=== PATIENT | male | born 1975 | race Caucasian/White ===

== ENCOUNTER 2025-05-19 01:47 | Inpatient (IN) | payer MEDICARE, OTHER, SELFPAY ==
[2025-05-19] VITALS (10 sets, daily range): BP systolic 73–137; BP diastolic 37–73; PULSE 60–79; RESP 14–19; TEMP 36.2–36.7; O2SAT 94–99; BMI 38.2
--- NOTE | ~2025-05-19 | XR_ITS ---
EXAMINATION: XR chest 2V 05/19/2025 02:25 INDICATION: Chest pain and shortness of breath PROCEDURE: 2 view chest COMPARISON: No prior studies for comparison. FINDINGS: The lungs are clear. The cardiomediastinal silhouette is within normal limits. There are no pleural effusions. There is no pneumothorax suspected. IMPRESSION: 1: NO ACUTE CARDIOPULMONARY DISEASE. Reviewed, dictated and finalized at location A.
--- NOTE | ~2025-05-19 | NM_ITS ---
EXAMINATION: NM monserrat stress w perfusion DATE: 05/19/2025 13:19 INDICATION: Chest pain TECHNIQUE: Rest images were obtained following intravenous administration of 9.44 mCi Tc99m tetrofosm in (Myoview). The patient was infused intravenously with Lexiscan (Regadenoson). Then, 31 mCi Tc99m t etrofosmin (Myoview) was administered intravenously, and stress images were obtained. Data was recons tructed into short axis and horizontal and vertical long axis SPECT images. Gated SPECT images were a lso obtained. COMPARISON: None. FINDINGS: There is a small mild perfusion defect along the mid inferior wall on the rest and stress i mages most prominent on the rest and gated post stress imaging is equivocal for small mild infarct ve rsus more likely diaphragmatic attenuation artifact. There is an additional small mild reversible per fusion defect at the mid inferolateral segment consistent with ischemia. There is normal left ventri cular chamber size, wall motion and ejection fraction. Left ventricular ejection fraction measures > 70%. IMPRESSION: 1. Small region suspicious for mild reversible ischemia at the mid inferolateral segment. 2. Small amount fixed perfusion defect along the mid inferior wall is equivocal for infarct versus di aphragmatic attenuation artifact.. 3. Left ventricular ejection fraction measuring >70%. Reviewed, dictated and finalized at location A. IMPRESSION: 1. Small region suspicious for mild reversible ischemia at the mid inferolatera l segment. 2. Small amount fixed perfusion defect along the mid inferior wall is equivocal for infarct versus diaphragmatic attenuation artifact.. 3. Left ventricular ejection fraction measuring >70%.
--- NOTE | ~2025-05-19 | CT_ITS ---
EXAMINATION: CTA chest PE protocol DATE: 05/19/2025 6:16 CDT INDICATION: Chest pain. Hypertension. TECHNIQUE: Computed tomographic angiography (CTA) of the chest was performed with 100 mL Omnipaque-35 0 intravenous contrast. The dose-length product was 1397.52 mGy-cm. Maximum intensity projection 3D-r econstructions of the aorta and other arteries were constructed by the technologist on a separate wor kstation. COMPARISON: None. FINDINGS: Study is technically adequate without evidence for pulmonary embolism. Heart size normal. N o significant pleural or pericardial effusion. No suspicious pulmonary nodules or masses. No focal co nsolidation to suggest pneumonia. No endobronchial lesions. No pneumothorax. Hepatomegaly. Nodularity of the liver surface suspicious for cirrhosis. Moderate thoracic spondylosis. No focal lytic or arias tic lesions. IMPRESSION: 1. No acute cardiopulmonary disease. No evidence for pulmonary embolism. Reviewed, dictated and finalized at location A.
--- NOTE | 2025-05-19 01:48 | ECG_ITS ---
Test Date: 2025-05-19 02:02:57 Measurements Intervals [place] Rate: 71 P: -43 LA: 130 QRS: 28 QRSD: 90 T: 6 QT: 370 QTc: 403 Interpretive Statements ECTOPIC ATRIAL RHYTHM NONSPECIFIC T-WAVE ABNORMALITY ABNORMAL ECG No previous ECG available for comparison Electronically Signed On 05-19-2025 10:05:42 CDT by Russell Ratliff M.D.
[2025-05-19 02:21] LABS: Hematocrit 41.6 % (42.0-52.0); Hemoglobin 14.5 g/dL (14.0-18.0); Immature Granulocyte Percent A 0.2 % (0-0.5); Lymphocytes Absolute Auto 3.40 K/mm3 (0.9-3.2); Mean Corpuscular HGB Conc 34.9 g/dl (32-36); Mean Corpuscular Hemoglobin 29.5 pg (26-34); Mean Corpuscular Volume 84.6 fl (80-100); Nucleated Red Blood Cells Absolute Auto 0.000 K/mm3 (0.0-0.012); Nucleated Red Blood Cells Perc 0.0 % (0.0-0.2); Platelet Count Result 192 k/mm3 (150-375); Red Blood Count 4.92 M/mm3 (4.6-6.20); White Blood Count 8.9 K/mm3 (4.5-10.0)
[2025-05-19 02:28] LABS: INR 1.0; Prothrombin Time 13.5 Seconds (11.1-14.7)
[2025-05-19 02:30] LABS: Partial Thromboplastin Time 22.2 Seconds (22.3-36.8)
[2025-05-19 02:47] LABS: Alanine Aminotransferase 44 U/L (6-50); Albumin Level 4.4 g/dL (3.5-5.1); Alkaline Phosphatase 52 U/L (38-126); Anion Gap 12 mmol/L (4-12); Aspartate Amino Transferase 31 U/L (17-59); Bilirubin,Total 0.6 mg/dL (0.2-1.3); Blood Urea Nitrogen 19 mg/dL (9-20); Calcium 10.1 mg/dL (8.4-10.2); Carbon Dioxide 20 mmol/L (22-30); Chloride 101 mmol/L (98-107); Estimated CRCL calculation 63 ml/min; Estimated Glomerular Filt Rate 40; Glucose 206 mg/dL (65-110); Lipase 239 U/L (23-300); Potassium 4.0 mmol/L (3.4-5.0); Sodium 133 mmol/L (137-145); Total Protein 7.9 g/dL (6.3-8.2)
[2025-05-19] MEDS: SODIUM CHLORIDE 0.9% IV 1,000 ML 999 ML IV CONT ×2 (02:52→06:18)
[2025-05-19] MEDS: LACTATED RINGERS 1,000 ML 999 ML IV CONT (02:52)
--- OUTSIDE RECORDS SUMMARY | 2025-05-19 02:57 | XMS_ITS | Clinical Summary ---
Author Organization [facility] Address [address] [place] [address] Care Team Providers Care Advertising Operations Coordinator Name Role Phone Guanako Mccallum DDRito Primary Care Provider [phone] Allergies No known active allergies Medications lisinopril 10 MG tablet Take 5 mg by mouth daily. Active traMADol 50 MG tablet Take 10 mg by mouth 4 (four) times a day. Active atenolol 25 MG tablet Take 12.5 mg by mouth daily. Active hydrOXYzine 25 MG capsule Take 25 mg by mouth 2 (two) times a day. Active metFORMIN 500 MG tablet Take 500 mg by mouth 2 (two) times daily with meals. Active hydrocodone-radha taminophen 7.5-325 MG tablet Take 1 tablet by mouth 4 (four) times a day. Active cyclobenzaprine 10 MG tablet Take 10 mg by mouth 3 (three) times daily as needed. Active divalproex ER 500 MG 24 hr tablet Take 500 mg by mouth daily. Take 1 tablet every morning and take 2 tablets at bedtime Active fenofibrate 145 MG tablet Take 145 mg by mouth daily. Active rosuvastatin 40 MG tablet Take 40 mg by mouth nightly at bedtime. Active levothyroxine 25 MCG tablet Take 25 mcg by mouth every morning. Active glipiZIDE 5 MG tablet Take 5 mg by mouth every morning before breakfast. Take 2 tablets every morning with meal and take 1 tablet every evening with meal Active potassium citrate CR 10 MEQ (1080 MG) tablet Take 10 mEq by mouth 2 (two) times a day. Active ranitidine 150 MG tablet Take 150 mg by mouth 2 (two) times daily. Active sertraline 100 MG tablet Take 100 mg by mouth daily. Take 2 tablets by mouth every day and take one-half tablet at bedtime Active omeprazole 20 MG capsule Take 20 mg by mouth daily. Active QUEtiapine 100 MG tablet Take 200 mg by mouth nightly at bedtime. Take 1 tablet by mouth every morning and 1 1/2 tablet at bedtime Active gabapentin 300 MG capsule Take 600 mg by mouth 3 (three) times daily. Active aspirin EC 81 MG tablet Take 81 mg by mouth daily. Active Multiple Vitamins-Minera ls (MULTIVITAMIN ADULT) Tab Active biotin 300 MCG Tab Take 1 tablet by mouth daily. Active Multiple Vitamin (TAB-A-JASON/BET A CAROTENE) Tab Acti ve Active Problems Problem Noted Date Diagnosed Date History of esophagogastroduodenoscopy (EGD) 07/30 Esophageal dysmotility 08/26/2019 Schizoaffective disorder, bipolar type ([facility]) 07/03/2019 Bilateral carpal tunnel syndrome 07/03/2019 Hypokalemia 07/03/2019 Hypothyroidism 07/03/2019 Hypertensive disorder 07/03/2019 Type 2 diabetes mellitus ([facility]) 07/03 Gastroesophageal reflux disease 07/03/2019 Chronic kidney disease 07/03/2019 Obstructive sleep apnea 07/03/2019 Obesity 07/03/2019 Smoker 07/03/2019 Family History Medical History Relation Comments Diabetes Father Hyperlipidemia Father Hypertension Father atrialfibulation Father Diabetes Mother Hyperlipidemia Mother Hypertension Mother Relation Status Comments Father Mother Social History Tobacco Use Types Packs/Day Years Used Date Smoking Tobacco: Every Day Smokeless Tobacco: Current Chew Alcohol Use Standard Drinks/Week Comments No 0 (1 standard drink = 0.6 oz pur e alcohol) AUDIT-C Answer Date Recorded Frequency of Alcohol Consumption Never 07/07/2019 Average Number of Drinks Not on file 019 Frequency of Binge Drinking Not on file 06/28 Sex and Gender Information Value Date Recorded Sex Assigned at Male 07/07/2019 2:04 PM CDT Legal Sex Male 3:24 PM CDT Gender Identity Male 07/07/2019 2:04 PM CDT Sexual Orientation Not on file Last Filed Vital Signs Vital Sign Reading Time Taken Comments Blood Pressure 135/85 08/27/2019 2:25 PM CDT Pulse 72 08/27/2019 2:25 PM CDT Temperature 36.3 C (97.4 F) 07/13/2019 12:45 PM CDT Respiratory Rate 20 07/13/2019 12:45 PM CDT Oxygen Saturation 98% 07/13/2019 12:33 PM CDT Inhaled Oxygen Concentration - - Weight 151 kg (332 lb 14.3 oz) 08/27/2019 2:25 P M CDT Height 188 cm (6' 2) 08/27/2019 2:25 PM CDT Body Mass Index 42.74 08/27/2019 2:25 PM CDT Plan of Treatment Health Maintenance Due Date Last Done Comments Colorectal Cancer Screening Colonoscopy (10 Years) 1975 Annual Physical 1979 Hepatitis C 1994 DTaP, Tdap and Td Vaccines ( 1 - Tdap) 1995 Hepatitis B Vaccines (1 of 3 - 19+ 3-dose series) 1995 Pneumococcal Vaccine: Pediat rics (0 to 5 Years) and At-Risk Patients (6 to 49 Years) (1 of 2 - PCV) 1995 COVID-19 Vaccine (2023-2 5 season) 2024 Meningococcal B Vaccine Aged Out No l onger eligible based on patient's age to complete this topic Meningococcal Vaccine Aged Out No chad mauricio eligible based on patient's age to complete this topic RSV Immunizations Under 20 Months Aged Out No longer eligible based on patient's age to complete this topic Care Teams Advertising Operations Coordinator Relationship Specialty Start Date End Date Guanako Mccallum DDS [address] [facility] [id number] [place] [address] PCP - General PREVENTIVE MEDICINE 06/30/19
[2025-05-19 03:01] LABS: Troponin I 0.041 ng/mL (0.000-0.034)
--- NOTE | 2025-05-19 03:06 | ECG_ITS ---
Test Date: 2025-05-19 03:09:06 Measurements Intervals [place] Rate: 62 P: 99 IN: 150 QRS: 36 QRSD: 88 T: 61 QT: 398 QTc: 407 Interpretive Statements SINUS RHYTHM NONSPECIFIC T-WAVE ABNORMALITY ABNORMAL ECG Compared to ECG 05/19/2025 02:02:57 No significant changes Electronically Signed On 05-19-2025 10:06:07 CDT by Russell Ratliff M.D.
--- NOTE | 2025-05-19 03:25 | ED_ITS ---
HPI - Chest Pain General Chief Complaint: Chest Pain Stated Complaint: chest pain, sob, palpatations Time Seen by Provider: 05/19/25 02:24 History of Present Illness HPI narrative: 49-year-old male with a history of hypertension, hyperlipidemia. Patient presents to the emergency department with concerns of chest pain, shortness a breath and palpitations sensations. States that feels like something is squeezing his heart. Endorses some lightheadedness and dizziness but no passing out or syncope. He received nitroglycerin in route by EMS even though he had low blood pressures. On arrival he was 73/37. This improved without any interventions to 90/56 by bring him back into the room. No history of DVT or PE. No recent surgeries in the last 6 months. No calf cramping or asymmetry in the legs. Endorses constant chest pain that began sometime last night and progressively worsened throughout the evening. Not doing any exertional in the symptoms onset. Endorses shortness of breath but no fever, chills, cough, abdominal pain, back pain, nausea, vomiting, weakness or paresthesias. Does not see a emergency planning and response manager. Takes amlodipine and atenolol for blood pressure control. Related Data Allergies Allergy/AdvReac Type Severity Reaction Status Date / Time No Known Allergies Allergy Verified 05/19/25 01:48 Review of Systems 2 Review of Systems: As reviewed above in HPI Exam 2 Narrative: GENERAL: [Well-appearing, well-nourished, and in no acute distress.] HEAD: [Normocephalic, atraumatic.] EYES: [PERRLA and EOMI.] ENT: Nares clear, no rhinorrhea or epistaxis. Mucous membranes moist. NECK: Supple. CHEST: [Clear to auscultation. No respiratory distress.] HEART: [Regular rate and rhythm]. No murmur heard. [Normal peripheral pulses.] ABDOMEN: [Soft, nondistended], [nontender], [No rigidity or guarding] EXTREMITIES: Normal range of motion. [No edema.] SKIN: Warm, dry, no rash. NEURO: [No focal deficits]. Alert and oriented [x3.] PSYCH: [Normal mood and affect.] Course Vital Signs Vital signs: Vital Signs Temperature 36.2 C L 05/19/25 01:49 Pulse Rate 70 07/23/25 01:49 Respiratory Rate 19 05/19/25 01:49 Blood Pressure 73/37 L 05/19/25 01:49 Pulse Oximetry 97 05/19/25 01:49 Oxygen Delivery Room Air 05/19/25 01:49 Temperature 36.2 C L 05/19/25 01:49 Pulse Rate 62 05/19/25 03:15 Respiratory Rate 14 05/19/25 03:15 Blood Pressure 97/63 L 05/19/25 03:15 Pulse Oximetry 94 05/19/25 03:15 Oxygen Delivery Room Air 05/19/25 01:49 MDM - Chest Pain MDM Narrative Medical decision making narrative: 49-year-old male with a history of hypertension, hyperlipidemia. Patient presents to the emergency department with concerns of chest pain, shortness a breath and palpitations sensations. States that feels like something is squeezing his heart. Endorses some lightheadedness and dizziness but no passing out or syncope. He received nitroglycerin in route by EMS even though he had low blood pressures. On arrival he was 73/37. This improved without any interventions to 90/56 by bring him back into the room. No history of DVT or PE. No recent surgeries in the last 6 months. No calf cramping or asymmetry in the legs. Endorses constant chest pain that began sometime last night and progressively worsened throughout the evening. Not doing any exertional in the symptoms onset. Endorses shortness of breath but no fever, chills, cough, abdominal pain, back pain, nausea, vomiting, weakness or paresthesias. Does not see a emergency planning and response manager. Takes amlodipine and atenolol for blood pressure control. Patient is not any acute distress but did have low blood pressures in triage after receiving nitroglycerin in route by EMS. This improved to 90s over 50s in the room without any further interventions. Fluids were started. He is endorsing chest pain and left-sided chest and pointing towards where his heart is. Pain does not radiate anywhere. Strong symmetric pulses throughout, warm extremities, afebrile with good saturation 97% on room air. No tachycardia. Placed on bolt man and pulse oximetry. Workup was ordered including serial troponins, EKG, chest x-ray, CBC, CMP lipase. Patient given Dilaudid for analgesia and re-evaluated. Initial troponin is elevated. CT angiography of the chest ordered this time for further evaluation. EKG shows no ST segment elevations on initial and delta EKG obtained after initial troponin. CT angiography shows no pulmonary embolism, no aneurysms or dissections. Clear lungs. Heart size is normal. No lymph node enlargement. Chest x-ray shows no acute findings. Patient is started on heparin at this time, bolus dose provided. Delta troponin pending. Blood pressure improved to 105/68 with fluid resuscitation. He did require additional pain control medications. Admitted to the hospitalist after discussed the patient's presentation and concern for elevated troponins in the settings of potential angina or ACS. Patient accepted to a IMU bed. Consult Cardiology placed. Patient re-evaluated doing well after pain medications and heparin. Medical Records Data Attestation: I reviewed the patient's medical records. Lab Data Attestation: I reviewed the patient's lab results. 05/19/25 05:44 05/19/25 02:09 Labs: Lab Results 05/19/25 05/19/25 05/19/25 Range/Units 02:09 02:33 05:44 WBC 8.9 7.9 (4.5-10.0) K/mm3 RBC 4.92 4.32 L (4.6-6.20) M/mm3 Hgb 14.5 12.8 L (14.0-18.0) g/dL Hct 41.6 L 37.1 L (42.0-52.0) % MCV 84.6 85.9 (80-100) fl MCH 29.5 29.6 (26-34) pg MCHC 34.9 34.5 (32-36) g/dl RDW 12.9 13.1 (11.5-14.5) % Plt Count 192 160 (150-375) k/mm3 MPV 10.9 H 10.9 H (7.4-10.4) fl Immature Gran % (Auto) 0.2 0.4 (0-0.5) % Neut % (Auto) 49.9 46.4 (45.5-73.1) % Lymph % (Auto) 38.4 42.7 (18.3-44.2) % Bee % (Auto) 10.2 H 9.2 H (2.6-8.5) % Eos % (Auto) 1.0 0.8 (0-4.4) % Baso % (Auto) 0.3 0.5 (0.2-1.2) % Lymph # (Auto) 3.40 H 3.39 H (0.9-3.2) K/mm3 Bee # (Auto) 0.9 H 0.7 H (0.1-0.6) K/mm3 Eos # (Auto) 0.1 0.1 (0-0.3) K/mm3 Baso # (Auto) 0.0 0.0 (0.0-0.1) K/mm3 Abs Immat Gran (auto) 0.02 0.03 (0.00-0.031) K/mm3 Absolute Neuts (auto) 4.4 3.7 (1.3-6.7) K/mm3 Absolute Nucleated RBC 0.000 0.000 (0.0-0.012) K/mm3 Nucleated RBC % 0.0 0.0 (0.0-0.2) % PT 13.5 14.0 (11.1-14.7) Seconds INR 1.0 1.1 APTT 22.2 L 23.3 (22.3-36.8) Seconds Sodium 133 L (137-145) mmol/L Potassium 4.0 (3.4-5.0) mmol/L Chloride 101 (98-107) mmol/L Carbon Dioxide 20 L (22-30) mmol/L Anion Gap 12 (4-12) mmol/L BUN 19 (9-20) mg/dL Creatinine 1.82 H (0.7-1.3) mg/dL Estim Creat Clear Calc 63 ml/min Estimated GFR 40 L (59 - ) Glucose 206 H (65-110) mg/dL Lactic Acid 2.6 H 2.2 H (0.7-2.0) mmol/L Calcium 10.1 (8.4-10.2) mg/dL Total Bilirubin 0.6 (0.2-1.3) mg/dL AST 31 (17-59) U/L ALT 44 (6-50) U/L Alkaline Phosphatase 52 (38-126) U/L Troponin I 0.041 H* Pending (0.000-0.034) ng/mL Total Protein 7.9 (6.3-8.2) g/dL Albumin 4.4 (3.5-5.1) g/dL Lipase 239 (23-300) U/L Imaging Data Attestation: I personally reviewed and interpreted this imaging study as follows: My impression: Impressions Chest CTA 05/19/25 06:15 IMPRESSION: 1. No acute cardiopulmonary disease. No evidence for pulmonary embolism. Chest X-Ray 05/19/25 06:22 IMPRESSION: 1: NO ACUTE CARDIOPULMONARY DISEASE. Critical Care Time Critical Care Time Critical Care Time: Yes Total Critical Care Time: 35 Discharge Plan Discharge Clinical Impression: Non-ST elevation NC (NSTEMI), Chest pain, Elevated troponin Patient Disposition: Still a Patient Condition: Stable Patient Language: French Follow-up/Referrals: [facility] [Primary Care Provider] - Time of Disposition: 06:28
[2025-05-19] MEDS: HYDROmorphone HCL INJ (*CRX) 2 MG/ML VIAL 0.5 MG IV PUSH ×2 (03:42→06:19)
[2025-05-19 05:52] LABS: Hematocrit 37.1 % (42.0-52.0); Hemoglobin 12.8 g/dL (14.0-18.0); Immature Granulocyte Percent A 0.4 % (0-0.5); Lymphocytes Absolute Auto 3.39 K/mm3 (0.9-3.2); Mean Corpuscular HGB Conc 34.5 g/dl (32-36); Mean Corpuscular Hemoglobin 29.6 pg (26-34); Mean Corpuscular Volume 85.9 fl (80-100); Nucleated Red Blood Cells Absolute Auto 0.000 K/mm3 (0.0-0.012); Nucleated Red Blood Cells Perc 0.0 % (0.0-0.2); Platelet Count Result 160 k/mm3 (150-375); Red Blood Count 4.32 M/mm3 (4.6-6.20); White Blood Count 7.9 K/mm3 (4.5-10.0)
[2025-05-19 06:03] LABS: INR 1.1; Prothrombin Time 14.0 Seconds (11.1-14.7)
[2025-05-19 06:04] LABS: Partial Thromboplastin Time 23.3 Seconds (22.3-36.8)
[2025-05-19] MEDS: HEPARIN SOD/D5W 100 UNITS/ML 25,000 UNITS/250 ML BAG 10 UNITS IV CONT (06:20)
[2025-05-19 06:32] LABS: Troponin I 0.038 ng/mL (0.000-0.034)
--- NOTE | 2025-05-19 07:52 | EST_ITS ---
Patient Info Name: Guzman Turner Age: 49 years : 1975 Gender: Male Ht: 73 in Wt: 279 lbs BSA: 2.60 m2 HR: 59 bpm BP: 102 / 55 mmHg Exam Date: 05/19/2025 7:52 AM Patient Status: I Admit Date: 05/19/2025 Exam Type: CA stress monserrat w NM A regadenoson stress test was performed. Staff Referring Physician: Anshul Wright DO Attending Provider: Jenny Nicolas DO Exercise Technologist: Lucretia Thomason Exercise Physician: Anshul Wright DO Summary 1. 1. Negative lexiscan stress test for ischemic ST changes by ECG criteria. 2. 2. Stable hemodynamics throughout the test. 3. 3. Nuclear scan to follow and will be reported separately. Please correlate with it. 4. 4. Patient informed of the above results. Protocol: Lexiscan Stress ECG Details Stage: REST Duration (min): 0 min : 53 sec HR (bpm): 60 SBP (mmHg): 102 DBP (mmHg): 55 Stage: REST Duration (min): 5 min : 35 sec HR (bpm): 59 SBP (mmHg): 102 DBP (mmHg): 55 Stage: STAGE 1 Duration (min): 1 min : 0 sec HR (bpm): 65 SBP (mmHg): 104 DBP (mmHg): 58 Stage: RECOVERY Duration (min): 1 min : 0 sec HR (bpm): 71 SBP (mmHg): 104 DBP (mmHg): 58 Stage: RECOVERY Duration (min): 2 min : 0 sec HR (bpm): 68 SBP (mmHg): 104 DBP (mmHg): 58 Stage: RECOVERY Duration (min): 3 min : 0 sec HR (bpm): 67 SBP (mmHg): 103 DBP (mmHg): 53 Stage: RECOVERY Duration (min): 3 min : 33 sec HR (bpm): 66 SBP (mmHg): 103 DBP (mmHg): 53 Rest HR: 59 bpm Peak HR: 71 bpm Rest Sys BP: 102 mmHg Peak Sys BP: 104 mmHg Max Pred HR: 172 bpm % Max Pred HR: 41 % Target HR: 146 bpm Max RPP: 7,384 bpm*mmHg Termination Reason: Completed protocol Cardiac Symptoms: Shortness of breath Total Time: 1 min : 0 sec Rest Hall BP: 55 mmHg Peak Hall BP: 58 mmHg Total Dose: 0.4 mg Resting ECG Sinus rhythm, borderline ST-T wave abnormality. Stress ECG No ST changes. Arrhythmias None. Report Signatures
--- NOTE | 2025-05-19 07:53 | P.CONCA_ITS ---
Assessment and Plan Assessment and plan (1) Chest pain: Code(s): R07.9 - Chest pain, unspecified Status: Acute Assessment and Plan: Chronic and intermittent for years. Troponin slightly elevated at 0.043 and trending down. Could be due to hypotension. On heparin drip in ER. Obtain Lexiscan myoview stress test. Obtain echo. (2) Hypertension: Code(s): I10 - Essential (primary) hypertension Status: Acute Assessment and Plan: Low normal now. Stop antihypertensives and monitor BP. (3) Dyslipidemia: Code(s): E78.5 - Hyperlipidemia, unspecified Status: Acute Assessment and Plan: On statin. History of Present Illness History of Present Illness Consult date/time: 05/19/25 07:53 Reason For Visit: ACS/Elevated Trope/Chest Pain Narrative: 49 yr old man presents to ED via EMS for chest pain. He has a history of hypertension, dyslipidemia, chews tobacco, bipolar disorder. Reports he has intermittent chest squeezing pain, lightheadedness, palpitations for 3 years. He had them again last evening. He checked his BP twice and it went down to 73 SBP. He decided to call EMS due to low BP and fast HR of 103 bpm. Currently no chest pain. He is limited at walking 10 feet due to chronic back pain then PAUL. He chews tobacco. Denies orthopnea, PND, edema. Review of Systems 2 Review of Systems: All systems reviewed & are unremarkable except as noted in HPI and below Constitutional: Constitutional: Reports as per HPI, Denies chills and Denies fever(s) Cardiovascular: Cardiovascular: Reports as per HPI, Reports chest pain, Reports rapid heart rate and Reports irregular heart rhythm Respiratory: Respiratory: Reports as per HPI and Reports dyspnea on exertion Gastrointestinal: Gastrointestinal: Reports as per HPI and Denies abdominal pain Genitourinary: Genitourinary: Reports as per HPI and Denies dysuria Musculoskeletal: Musculoskeletal: Reports as per HPI and Reports back pain Neurologic: Reports as per HPI, Reports dizziness and Denies syncope Meds Home Medications and Allergies Allergies Allergy/AdvReac Type Severity Reaction Status Date / Time No Known Allergies Allergy Verified 05/19/25 01:48 Vital Signs Vital Signs - 24 hr 05/19/25 01:49 05/19/25 02:16 05/19/25 02:43 Temperature 97.2 F L Pulse Rate 70 73 64 Respiratory Rate 19 15 Blood Pressure 73/37 L 92/51 L Pulse Oximetry 97 97 Oxygen Delivery Room Air 05/19/25 03:15 Temperature Pulse Rate 62 Respiratory Rate 14 Blood Pressure 97/63 L Pulse Oximetry 94 Oxygen Delivery Exam 2 Const: General: cooperative, healthy appearing and comfortable Resp: Auscultation: clear to auscultation bilaterally, no crackles, no rales, no rhonchi and no wheezes Cardio: Rate: regular rate Rhythm: regular rhythm Heart sounds: no murmurs Peripheral pulses: dorsalis pedis present GI: GI Palp: No abdominal tenderness and Yes Soft to palpation Neuro: General: oriented to person, oriented to place and oriented to time Extrem: Right lower extremity: no edema Left lower extremity: no edema Results Labs and Meds 05/19/25 05:44 05/19/25 02:09 Lab results: Cardiac Enzymes 05/19/25 05/19/25 Range/Units 02:09 05:44 AST 31 (17-59) U/L Troponin I 0.041 H* 0.038 H* (0.000-0.034) ng/mL Coagulation 05/19/25 05/19/25 Range/Units 02:09 05:44 PT 13.5 14.0 (11.1-14.7) Seconds APTT 22.2 L 23.3 (22.3-36.8) Seconds CBC 05/19/25 05/19/25 Range/Units 02:09 05:44 WBC 8.9 7.9 (4.5-10.0) K/mm3 RBC 4.92 4.32 L (4.6-6.20) M/mm3 Hgb 14.5 12.8 L (14.0-18.0) g/dL Hct 41.6 L 37.1 L (42.0-52.0) % Plt Count 192 160 (150-375) k/mm3 Lymph # (Auto) 3.40 H 3.39 H (0.9-3.2) K/mm3 [place] # (Auto) 0.9 H 0.7 H (0.1-0.6) K/mm3 Eos # (Auto) 0.1 0.1 (0-0.3) K/mm3 Baso # (Auto) 0.0 0.0 (0.0-0.1) K/mm3 Comprehensive Metabolic Panel 05/19/25 Range/Units 02:09 Sodium 133 L (137-145) mmol/L Potassium 4.0 (3.4-5.0) mmol/L Chloride 101 (98-107) mmol/L Carbon Dioxide 20 L (22-30) mmol/L BUN 19 (9-20) mg/dL Creatinine 1.82 H (0.7-1.3) mg/dL Glucose 206 H (65-110) mg/dL Calcium 10.1 (8.4-10.2) mg/dL AST 31 (17-59) U/L ALT 44 (6-50) U/L Alkaline Phosphatase 52 (38-126) U/L Total Protein 7.9 (6.3-8.2) g/dL Albumin 4.4 (3.5-5.1) g/dL Intake and Output 05/18/25 05/18/25 05/19/25 15:59 23:59 07:59 Intake Total 1999 Balance 1999 Intake: IV 2000 Lactated Ringers 1,000 ml @ 999 1000 mls/hr IV CONT .Q1H1M STA Rx#: [id number] Sodium Chloride 0.9% IV 1,000 1000 ml @ 999 mls/hr IV CONT .Q1H1M STA Rx#:[id number] Patient Weight 05/19/25 23:59 Weight 127 kg
--- NOTE | 2025-05-19 08:07 | ADMGEN ---
This patient, Guzman Turner, was admitted to IMU Room 203-01 at approximately 0800. Patient/family oriented to hospital policies and general routines including ID bracelet, bed and alarms, visiting hours, pain management, procedures, bathroom and other care routines, personal items, smoking policy, room service/diet, and visiting hours. Information on how to activate the Rapid Response Team has been discussed. Patient/Family are encouraged to report perceived risks to care and to ask questions if they do not understand what they are told or what they should do.
[2025-05-19 08:16] LABS: Troponin I 0.030 ng/mL (0.000-0.034)
--- NOTE | 2025-05-19 14:14 | P.HP_ITS ---
H&P: HPI History of Present Illness Date/Time: 05/19/25 14:14 Chief Complaint: Chest pain Narrative: HPI narrative: 49-year-old male with a history of hypertension, hyperlipidemia. Patient presents to the emergency department with concerns of chest pain, shortness a breath and palpitations sensations. States that feels like something is squeezing his heart. Endorses some lightheadedness and dizziness but no passing out or syncope. He received nitroglycerin in route by EMS even though he had low blood pressures. On arrival he was 73/37. This improved without any interventions to 90/56 by bring him back into the room. No history of DVT or PE. No recent surgeries in the last 6 months. No calf cramping or asymmetry in the legs. Endorses constant chest pain that began sometime last night and prog ressively worsened throughout the evening. Not doing any exertional in the symptoms onset. Endorses shortness of breath but no fever, chills, cough, abdominal pain, back pain, nausea, vomiting, weakness or paresthesias. Does not see a gas truck driver. Takes amlodipine and atenolol for blood pressure control. patient is 49 male with history of HTN and HDL, presented to ER with CP, shortness of breath and palpitation, upon arrival patient trops were minimally elevated and trended down, there was not acute changes on EKG, patient was seen by the gas truck driver and ordered Lexiscan stress test to further evaluate patient chest pain. will follow up and further recommendation to follow. patient is clinically stable. Review of Systems Review of Systems: All systems reviewed & are unremarkable except as noted in HPI and below Constitutional: Constitutional: Reports as per HPI, Denies chills and Denies fever(s) Cardiovascular: Cardiovascular: Reports as per HPI, Reports chest pain, Reports rapid heart rate and Reports irregular heart rhythm Respiratory: Respiratory: Reports as per HPI and Reports dyspnea on exertion Gastrointestinal: Gastrointestinal: Reports as per HPI and Denies abdominal pain Genitourinary: Genitourinary: Reports as per HPI and Denies dysuria Musculoskeletal: Musculoskeletal: Reports as per HPI and Reports back pain Neurologic: Reports as per HPI, Reports dizziness and Denies syncope [facility] Family History Family History (Updated 05/19/25 @ 09:28 by Juliet Mendez RN) Mother Pancreatic cancer Social History Social History Smoking status: Former smoker Tobacco type: cigarettes Smokeless tobacco user: chewing tobacco Smoking end date: 02/26/20 Alcohol intake: former Substance use: former Substance use type: amphetamines Do You Feel Safe in your Home?: Yes Lack of Transportation: No Lack of Food: Never True Current Housing: I Have Housing Concerned About Future Housing: No Difficulty Paying Gas/Electric Bills: No Difficulty Paying for Meds: No Currently Unemployed: No Education: Trade/Vocational Certificate Difficulty w/ Childcare or Family Care: No Spiritual care concerns: No Meds Home Medications and Allergies Home Medications ?Medication ?Instructions ?Recorded ?Confirmed ?Type aspirin 81 mg capsule 81 mg PO DAILY 05/19/25 05/19/25 History biotin 10,000 mcg capsule 10,000 mcg PO HS 05/19/25 05/19/25 History cyclobenzaprine 10 mg tablet 10 mg PO TID 05/19/25 05/19/25 History divalproex 500 mg tablet,extended 500 mg PO BID 05/19/25 05/19/25 History release 24 hr (Depakote ER) empagliflozin 25 mg tablet 25 mg PO DAILY 05/19/25 05/19/25 History famotidine 40 mg tablet 40 mg PO BID 05/19/25 05/19/25 History fenofibrate 150 mg capsule 145 mg PO DAILY 05/19/25 05/19/25 History glipizide 10 mg tablet 10 mg PO BID 05/19/25 05/19/25 History hydrocodone 10 mg-acetaminophen 1 tablet PO Q6H PRN chronic pain 05/19/25 05/19/25 History 325 mg tablet levothyroxine 25 mcg capsule 25 mcg PO DAILY 05/19/25 05/19/25 History magnesium oxide 400 mg PO DAILY 05/19/25 05/19/25 History metformin 500 mg tablet 500 mg PO BID 05/19/25 05/19/25 History dwvpqzpu-zcfnlahi-qdvnv acid 400 1 tablet PO DAILY 05/19/25 05/19/25 History mcg-vit K 20 mcg-lycop 300 mcg tablet omeprazole 20 mg capsule,delayed 20 mg PO BID 05/19/25 05/19/25 History release potassium chloride 20 mEq 20 meq PO DAILY 05/19/25 05/19/25 History tablet,extended release (K-Tab) quetiapine 200 mg tablet 200 mg PO DAILY 05/19/25 05/19/25 History quetiapine 400 mg tablet 400 mg PO HS 05/19/25 05/19/25 History ropinirole 0.5 mg tablet 0.5 mg PO HS PRN as needed 05/19/25 05/19/25 History rosuvastatin 40 mg tablet (Crestor) 40 mg PO HS 05/19/25 05/19/25 History sertraline 100 mg tablet 200 mg PO DAILY 05/19/25 05/19/25 History sitagliptin 100 mg tablet 100 mg PO DAILY 05/19/25 05/19/25 History tramadol 50 mg tablet 100 mg PO .q6hr PRN pain 05/19/25 05/19/25 History Allergies Allergy/AdvReac Type Severity Reaction Status Date / Time No Known Allergies Allergy Verified 05/19/25 08:11 Vital Signs Vital Signs - 24 hr 05/19/25 01:49 05/19/25 02:16 05/19/25 02:43 Temperature 36.2 C L Pulse Rate 70 73 64 Respiratory Rate 19 15 Blood Pressure 73/37 L 92/51 L Pulse Oximetry 97 97 Oxygen Delivery Room Air 05/19/25 03:15 05/19/25 08:00 05/19/25 08:27 Temperature 36.6 C Pulse Rate 62 60 Respiratory Rate 14 18 Blood Pressure 97/63 L 127/66 Pulse Oximetry 94 98 97 Oxygen Delivery Room Air 05/19/25 10:00 05/19/25 12:00 Temperature Pulse Rate 79 61 Respiratory Rate Blood Pressure Pulse Oximetry Oxygen Delivery Exam Narrative: Patient is comfortable, NAD HEENT: eyes are clear and none icteric LUNGS:CTA HEART: RR S1S2 ABD: BS+, Soft and nontender Lower extremities: no edema SKIN: nonjaundiced Neuro: grossly intact. H&P: Results Labs Labs: Short CBC 05/19/25 05/19/25 Range/Units 02:09 05:44 WBC 8.9 7.9 (4.5-10.0) K/mm3 Hgb 14.5 12.8 L (14.0-18.0) g/dL Hct 41.6 L 37.1 L (42.0-52.0) % Plt Count 192 160 (150-375) k/mm3 [facility] 05/19/25 02:09 Sodium 133 L Potassium 4.0 Chloride 101 Carbon Dioxide 20 L BUN 19 Creatinine 1.82 H Glucose 206 H Calcium 10.1 Cardiac Enzymes 05/19/25 05/19/25 05/19/25 Range/Units 02:09 05:44 07:35 Troponin I 0.041 H* 0.038 H* 0.030 D (0.000-0.034) ng/mL Liver Function 05/19/25 Range/Units 02:09 Total Bilirubin 0.6 (0.2-1.3) mg/dL AST 31 (17-59) U/L ALT 44 (6-50) U/L Alkaline Phosphatase 52 (38-126) U/L Albumin 4.4 (3.5-5.1) g/dL Assessment and Plan Assessment and plan (1) Chest pain: Code(s): R07.9 - Chest pain, unspecified Status: Acute (2) Hypertension: Code(s): I10 - Essential (primary) hypertension Status: Acute (3) Dyslipidemia: Code(s): E78.5 - Hyperlipidemia, unspecified Status: Acute (4) Elevated troponin: Code(s): R79.89 - Other specified abnormal findings of blood chemistry Status: Acute Plan patient is 49 male with history of HTN and HDL, presented to ER with CP, shortness of breath and palpitation, upon arrival patient trops were minimally elevated and trended down, there was not acute changes on EKG, patient was seen by the gas truck driver and ordered Lexiscan stress test to further evaluate patient chest pain. will follow up and further recommendation to follow. patient is clinically stable.
--- NOTE | 2025-05-19 14:19 | P.DS_ITS ---
DS: Admitting Diagnosis Discharge Date 05/19/25 Admitting Diagnosis Chest pain DS: Discharge Diagnosis Discharge Diagnosis (1) Chest pain: Code(s): R07.9 - Chest pain, unspecified Status: Acute (2) Hypertension: Code(s): I10 - Essential (primary) hypertension Status: Acute (3) Dyslipidemia: Code(s): E78.5 - Hyperlipidemia, unspecified Status: Acute (4) Elevated troponin: Code(s): R79.89 - Other specified abnormal findings of blood chemistry Status: Acute Plan patient is 49 male with history of HTN and HDL, presented to ER with CP, shortness of breath and palpitation, upon arrival patient trops were minimally elevated and trended down, there was not acute changes on EKG, patient was seen by the outside cutter hand and ordered Lexiscan stress test to further evaluate patient chest pain. will follow up and further recommendation to follow. patient is clinically stable. DS: Summary Hospital Course Hospital Course: patient is 49 male with history of HTN and HDL, presented to ER with CP, shortness of breath and palpitation, upon arrival patient trops were minimally elevated and trended down, there was not acute changes on EKG, patient was seen by the outside cutter hand and ordered Lexiscan stress test to further evaluate patient chest pain. will follow up and further recommendation to follow. patient is clinically stable. Patient chest pain has resolved, his lexiscan stress test is negative, patient is clinically stable, will discharge home today Time Spent with Patient Time attestation: Total time spent providing and/or coordinating discharge services: Exam Narrative: Patient is comfortable, NAD HEENT: eyes are clear and none icteric LUNGS:CTA HEART: RR S1S2 ABD: BS+, Soft and nontender Lower extremities: no edema SKIN: nonjaundiced Neuro: grossly intact. DS: Data Data Completed and Pending Labs on day of discharge: Labs from last 24 hours 05/19/25 05/19/25 05/19/25 07:35 05:44 02:33 WBC 7.9 RBC 4.32 L Hgb 12.8 L Hct 37.1 L MCV 85.9 MCH 29.6 MCHC 34.5 RDW 13.1 Plt Count 160 MPV 10.9 H Immature Gran % (Auto) 0.4 Neut % (Auto) 46.4 Lymph % (Auto) 42.7 Bertie % (Auto) 9.2 H Eos % (Auto) 0.8 Baso % (Auto) 0.5 Lymph # (Auto) 3.39 H Bertie # (Auto) 0.7 H Eos # (Auto) 0.1 Baso # (Auto) 0.0 Abs Immat Gran (auto) 0.03 Absolute Neuts (auto) 3.7 Absolute Nucleated RBC 0.000 Nucleated RBC % 0.0 PT 14.0 INR 1.1 APTT 23.3 Sodium Potassium Chloride Carbon Dioxide Anion Gap BUN Creatinine Estim Creat Clear Calc Estimated GFR Glucose Lactic Acid 2.2 H 2.6 H Calcium Total Bilirubin AST ALT Alkaline Phosphatase Troponin I 0.030 D 0.038 H* Total Protein Albumin Lipase 05/19/25 02:09 WBC 8.9 RBC 4.92 Hgb 14.5 Hct 41.6 L MCV 84.6 MCH 29.5 MCHC 34.9 RDW 12.9 Plt Count 192 MPV 10.9 H Immature Gran % (Auto) 0.2 Neut % (Auto) 49.9 Lymph % (Auto) 38.4 Bertie % (Auto) 10.2 H Eos % (Auto) 1.0 Baso % (Auto) 0.3 Lymph # (Auto) 3.40 H Bertie # (Auto) 0.9 H Eos # (Auto) 0.1 Baso # (Auto) 0.0 Abs Immat Gran (auto) 0.02 Absolute Neuts (auto) 4.4 Absolute Nucleated RBC 0.000 Nucleated RBC % 0.0 PT 13.5 INR 1.0 APTT 22.2 L Sodium 133 L Potassium 4.0 Chloride 101 Carbon Dioxide 20 L Anion Gap 12 BUN 19 Creatinine 1.82 H Estim Creat Clear Calc 63 Estimated GFR 40 L Glucose 206 H Lactic Acid Calcium 10.1 Total Bilirubin 0.6 AST 31 ALT 44 Alkaline Phosphatase 52 Troponin I 0.041 H* Total Protein 7.9 Albumin 4.4 Lipase 239 Discharge Plan Discharge Attending physician on discharge: Jenny Nicolas Consulting providers: Anshul Wright; Russell Ratliff; Pete Maki; Mahesh Watson Discharging Clinician: Marilee Hardin Patient Disposition: Home Activity: as tolerated Diet: heart healthy Discharge Instructions: patient to follow up with outside cutter hand in 1 week, patient to follow up with his primary care provider as soon as possible, patient is instructed is any symptoms redevelop to go to nearest ER Patient Instructions: Antibiotic Form Patient Language: French Stand Alone Forms: General Discharge Information Follow-up/Referrals: Anshul Wright DO [Physician] - [facility]AY[facility] [Primary Care Provider] - Discharge Medications: Continued biotin 10,000 mcg capsule 10,000 mcg PO HS potassium chloride [K-Tab] 20 mEq tablet extended release 20 meq PO DAILY fenofibrate 150 mg capsule 145 mg PO DAILY zhlnqgld-tvn-axlbl-vit K-lycop 400-20-300 mcg tablet 1 tablet PO DAILY empagliflozin 25 mg tablet 25 mg PO DAILY metformin 500 mg tablet 500 mg PO BID Patient Comments: PT RX is for BID patient only takes once a day quetiapine 400 mg tablet 400 mg PO HS quetiapine 200 mg tablet 200 mg PO DAILY divalproex [Depakote ER] 500 mg tablet extended release 24 hr 500 mg PO BID cyclobenzaprine 10 mg tablet 10 mg PO TID glipizide 10 mg tablet 10 mg PO BID sitagliptin 100 mg tablet 100 mg PO DAILY famotidine 40 mg tablet 40 mg PO BID magnesium oxide 400 mg magnesium capsule 400 mg PO DAILY tramadol 50 mg tablet 100 mg PO .q6hr PRN (Reason: pain) sertraline 100 mg tablet 200 mg PO DAILY ropinirole 0.5 mg tablet 0.5 mg PO HS PRN (Reason: as needed) aspirin 81 mg capsule 81 mg PO DAILY hydrocodone-acetaminophen 10-325 mg tablet 1 tablet PO Q6H PRN (Reason: chronic pain) rosuvastatin [Crestor] 40 mg tablet 40 mg PO HS omeprazole 20 mg capsule,delayed release(DR/EC) 20 mg PO BID levothyroxine 25 mcg capsule 25 mcg PO DAILY Date of admission: 05/19/25 06:21 Primary Care Provider: [facility]JAYNA Admitting Provider: Jenny Nicolas Attending physician on admission: Marilee Hardin Condition: Stable
== END 2025-05-19 14:29 | disposition home or self-care (01) | DRG 313 ==
LOC: ANHED 06:28 → ANHIMU 07:46
PROVIDERS: Admitting Provider Internal Medicine; Emergency Provider Student in an Organized Health Care Education/Training Program; Visit Provider Family Medicine
DX: R07.9 Chest pain, unspecified (principal); I95.9 Hypotension, unspecified; I10 Essential (primary) hypertension; E78.5 Hyperlipidemia, unspecified; R79.89 Other specified abnormal findings of blood chemistry; F31.9 Bipolar disorder, unspecified; F17.220 Nicotine dependence, chewing tobacco, uncomplicated
CPT/HCPCS: 36415; 71046; 71275; 78452; 80053; 83605; 83690; 84484; 85025; 85610; 85730; 93005; 93017; 96361; 96365; 96375; 96376; 99291; A9502; J1171; J1644; J2785; J7030; J7120; Q9967